=== PATIENT | female | born 1945 | race Native Hawaiian/Other Pacific Islander ===

== ENCOUNTER 2017-02-03 16:33 | Emergency (ER) | payer MEDICARE, OTHER ==
[~2017-02-03] VITALS: Ht 154.9 cm; Wt 113.4 kg
[2017-02-03 17:24] VITALS: BP 143/84
== END 2017-02-03 17:47 | disposition home or self-care (01) ==
LOC: ER 16:33
DX: B02.9 Zoster without complications (principal); M19.90 Unspecified osteoarthritis, unspecified site; E11.9 Type 2 diabetes mellitus without complications; I10 Essential (primary) hypertension; Z98.51 Tubal ligation status; Z90.89 Acquired absence of other organs